=== PATIENT | male | born 1940 | race Caucasian/White ===

== ENCOUNTER → 2023-08-04 | Outpatient (RCR) | payer MEDICARE ==
[~2023-08-04] MED LIST: ALBU17AE23 IH; ARMO150T3 PO; ASCO500C14 PO; ASPI-84 PO; BUDE6HFA IH; CALC600T PO; CEPH500C PO; CHOL200018 PO; FEXO30TA17 PO; FLUT1DIS27 IH; GEMF600T3 PO; GUAI120013 PO; HCT25T PO; LOSA100T16 PO; MNTL10T PO; MOME13HF IH; MTP25TSR PO; MULT1TAB12 PO; OMEP-10 PO; OMG1KC PO; OXYM30SP; PRAV40TA PO; PRAV80TA PO; ROPI1TAB PO; TIOT18CA IH; [UNRECOGNIZED DRUG - REMARK] PO
== END ==
PROVIDERS: ATTEND Family Medicine Sports Medicine
DX: M25.561 Pain in right knee (principal); M25.562 Pain in left knee; I10 Essential (primary) hypertension; J45.909 Unspecified asthma, uncomplicated